=== PATIENT | male | born 1945 | race American Indian/Alaskan Native ===

== ENCOUNTER 2017-03-31 22:34 | Emergency (ER) | payer MEDICARE ==
[2017-04-01 01:30] LABS: Basophils % (Auto) 1.4 % (0.0-1.8); Eosinophils % (Auto) 2.4 % (0.0-4.3); Hemoglobin 10.1 gm/dl (11.8-15.2); Mean Corpuscular HGB Conc 33 % (32-34); Mean Corpuscular Hemoglobin 28 pg (28-32); Mean Corpuscular Volume 86 fl (84-94); Red Blood Count 3.63 M/mm3 (3.65-5.03); White Blood Count 6.3 K/mm3 (4.5-11.0)
[2017-04-01 01:36] LABS: Platelet Count 133 K/mm3 (140-440); Red Cell Distribution Width 20.8 % (13.2-15.2)
[2017-04-01 01:46] LABS: BUN/Creatinine Ratio 24; Blood Urea Nitrogen 12 mg/dL (9-20); Carbon Dioxide 22 mmol/L (22-30); Chloride 98.5 mmol/L (98-107); Glucose 99 mg/dL (75-100); Sodium 136 mmol/L (137-145)
[2017-04-01 02:00] LABS: Anion Gap 20 mmol/L; Calcium 5.6 mg/dL (8.4-10.2); Potassium 4.6 mmol/L (3.6-5.0)
--- NOTE | 2017-04-01 07:26 | XRay Report ---
ROUTINE CHEST, TWO VIEWS: HISTORY: Shortness of breath. The trachea, heart, mediastinal contour, lung correa and bony thorax are unremarkable. IMPRESSION: No acute cardiopulmonary process identified.
--- NOTE | 2017-04-01 10:27 | Emergency Department Report ---
HPI - General Chief Complaint: Dyspnea/Respdistress Time Seen by Provider: 04/01/17 09:52 - HPI HPI: This is a 71-year-old male with history of arthritis, CHF, hypertension, kidney stones, chronic pain who presents to the ED with shortness of breath on and off for the past 2 months that has been compliant with his medication although he doesn't know their names. States his shortness of breath is there with exertion only, is not accompanied by pain, wheezing, cough or congestion. He also complained of bilateral leg pain without swelling dry legs, that hurts throughout the day worse in the morning and tends to get better during the evenings. He is not on any medication for those symptoms. She denies any fever leg swelling, leg redness, recent long flights, recent long drive. ED Past Medical Hx - Past Medical History Hx Hypertension: Yes Hx Congestive Heart Failure: Yes Hx Arthritis: Yes Hx Kidney Stones: Yes Additional medical history: Chronic Pain - Surgical History Past Surgical History?: Yes Additional Surgical History: Left Inguinal Hernia Repair - Social History Smoking Status: Never Smoker Substance Use Type: None - Medications Home Medications: Home Medications Medication Instructions Recorded Confirmed Last Taken Type Gabapentin [Neurontin] 100 mg PO Q8HR #90 capsule 04/01/17 Unknown Rx ED Review of Systems ROS: Stated complaint: SOB Other details as noted in HPI Comment: All other systems reviewed and negative Respiratory: shortness of breath Endocrine: no symptoms reported Gastrointestinal: as per HPI Musculoskeletal: back pain Physical Exam - Physical Exam Vital Signs: Vital Signs 03/31/17 04/01/17 04/01/17 23:41 00:41 05:42 Temperature 98.9 F 98.9 F 98.2 F Pulse Rate 95 H 96 H 95 H Respiratory 18 18 Rate Blood Pressure 143/72 143/72 136/75 O2 Sat by Pulse 97 99 100 Oximetry 04/01/17 04/01/17 04/01/17 08:56 09:01 09:05 Temperature Pulse Rate 82 86 Respiratory 12 17 18 Rate Blood Pressure 112/60 O2 Sat by Pulse 100 100 Oximetry Physical Exam: Physical Exam: - General Limitations: No Limitations General appearance: alert, in no apparent distress, obese - Head Head exam: Present: atraumatic, normocephalic - Eye Eye exam: Present: normal appearance - ENT ENT exam: Present: mucous membranes moist - Neck Neck exam: Present: normal inspection - Respiratory Respiratory exam: Present: normal lung sounds bilaterally. Absent: respiratory distress - Cardiovascular Cardiovascular Exam: Present: normal rhythm, tachycardia. Absent: systolic murmur, diastolic murmur, rubs, gallop - GI/Abdominal GI/Abdominal exam: Present: soft, normal bowel sounds - Extremities Exam Extremities exam: Bilateral lower extremity dryness, but no swelling, no redness , pulses palpable and equal bilateral dorsalis pedis, posterior tibial. - Back Exam Back exam: Present: normal inspection - Neurological Exam Neurological exam: Present: alert, oriented X3 - Psychiatric Psychiatric exam: normal affect and mood - Skin Skin exam: Present: warm, dry, intact, normal color. Absent: rash ED Course Vital Signs 03/31/17 04/01/17 04/01/17 23:41 00:41 05:42 Temperature 98.9 F 98.9 F 98.2 F Pulse Rate 95 H 96 H 95 H Respiratory 18 18 Rate Blood Pressure 143/72 143/72 136/75 O2 Sat by Pulse 97 99 100 Oximetry 04/01/17 04/01/17 04/01/17 08:56 09:01 09:05 Temperature Pulse Rate 82 86 Respiratory 12 17 18 Rate Blood Pressure 112/60 O2 Sat by Pulse 100 100 Oximetry - Reevaluation(s) Reevaluation #1: 04/01/17 10:31 Differential diagnosis include shortness of breath, acute deconditioning, RI. Patient symptoms are likely related to his CHF, taking also in consideration that a 71-year-old in slightly deconditioned which my worsening his symptoms. RI has been ruled out in the ED via EKG and troponins negative. I Advised him to follow up with PCP currently feels much better once a go home return to ED as symptom worsens. ED Medical Decision Making - Lab Data Result diagrams: 04/01/17 01:11 04/01/17 01:11 Critical care attestation.: If time is entered above; I have spent that time in minutes in the direct care of this critically ill patient, excluding procedure time. ED Disposition Clinical Impression: Shortness of breath Chronic leg pain Qualifiers: Laterality: bilateral Qualified Code(s): M79.604 - Pain in right leg; M79.605 - Pain in left leg; M79.605 - Pain in left leg; G89.29 - Other chronic pain; G89.29 - Other chronic pain Disposition: DC-01 TO HOME OR SELFCARE Is pt being admited?: No Does the pt Need Aspirin: No Condition: Stable Prescriptions: Gabapentin [Neurontin] 100 mg PO Q8HR #90 capsule Referrals: CAROLINE FARIAS MD [Primary Care Provider] - 3-5 Days
[2017-04-01 10:29] VITALS: BP 109/57
== END 2017-04-01 10:43 | disposition home or self-care (01) ==
LOC: ED 22:34
DX: R06.02 Shortness of breath (principal); M79.605 Pain in left leg; G89.29 Other chronic pain; I10 Essential (primary) hypertension; I50.9 Heart failure, unspecified; M19.90 Unspecified osteoarthritis, unspecified site
CPT/HCPCS: 36415; 71020; 80048; 83880; 84484; 85025; 93005; 93010